=== PATIENT | male | born 1975 | race Hispanic/Latino ===

== ENCOUNTER 2021-09-23 14:01 | Emergency (ER) | payer BC, OTHER ==
[2021-09-23] MEDS ORDERED: ONDANSETRON 4 MG/2 ML VIAL ONE (14:45)
[2021-09-23] MEDS ORDERED: MORPHINE 4 MG/ML SYR ONE (14:45)
[2021-09-23 14:52] LABS: Absolute Lymphocytes (CBC) 2.5 K/uL (0.7-4.9); Hematocrit 41.4 % (39.6-49.0); Lymphocytes % 28.2 % (15.3-44.8); MPV 8.1 fL (7.6-11.3); RBC Red Blood Cell Count 4.51 M/uL (4.33-5.43)
[2021-09-23 15:12] LABS: Albumin 3.8 g/dL (3.4-5.0); Bilirubin Total 0.2 mg/dL (0.2-1.0); Potassium 3.8 mmol/L (3.5-5.1)
--- NOTE | 2021-09-23 15:54 | RAD REPORT ---
EXAM DESCRIPTION: CTAbdomen Pelvis W Contrast - 09/23/2021 3:46 pm CLINICAL HISTORY: Abdominal pain. umbilical abdominal pain COMPARISON: CT ABD PELVIS W CONTRAST dated 05/11/2009 TECHNIQUE: Biphasic CT imaging of the abdomen and pelvis was performed with 100 ml non-ionic IV cont rast. All CT scans are performed using dose optimization technique as appropriate and may include automated exposure control or mA/KV adjustment according to patient size. FINDINGS: The lung bases are clear.Small hiatal hernia. The liver is diffusely fatty. Cholecystectomy clips. Spleen, pancreas, adrenal glands and kidneys are within normal limits. No bowel obstruction, free air, free fluid or abscess. Small fat containing umbilical hernia with inf lamed fat. Appendectomy. No evidence of significant lymphadenopathy. No suspicious bony findings. IMPRESSION: Small fat containing umbilical hernia is present with inflamed fat, likely indicating in carceration.
--- NOTE | 2021-09-23 16:14 | ER ---
Nurse's Notes [facility] Name: Alon Velarde Age: 45 yrs Sex: Male : 1975 Arrival Date: 09/23/2021 Time: 14:03 Bed 14 Private MD: Diagnosis: Umbilical hernia without obstruction or gangrene Presentation: 09/23 14:04 Chief complaint: Patient states: Sudden onset of diffuse abd pain that began 15-20 aa5 minutes ago. Denies N/V/D. Pt noticed a lump above umbilicus 2-3 days ago. Tenderness is noted upon palpation to the area. Coronavirus screen: Client denies travel out of the [place] in the last 14 days. Ebola Screen: Patient denies exposure to infectious person. Patient denies travel to an Ebola-affected area in the 21 days before illness onset. Initial Sepsis Screen: Does the patient meet any 2 criteria? No. Patient's initial sepsis screen is negative. Does the patient have a suspected source of infection? No. Patient's initial sepsis screen is negative. Risk Assessment: Do you want to hurt yourself or someone else? Patient reports no desire to harm self or others. Onset of symptoms was September 23, 2021. 14:04 Method Of Arrival: Ambulatory aa5 14:04 Acuity: ILIR 2 aa5 Triage Assessment: 14:38 General: Appears uncomfortable, Behavior is calm, cooperative. Pain: Complains of pain jg9 in abdomen-umbilicus. GI: Abdomen is tender to palpation in mid quadrant around umbilicus. Historical: - Allergies: 14:05 No Known Allergies; aa5 - Home Meds: 14:05 None [Active]; aa5 - PMHx: 14:05 None; aa5 - PSHx: 14:05 Appendectomy; Cholecystectomy; aa5 - Immunization history:: Client reports receiving the 2nd dose of the Covid vaccine. - Social history:: Smoking status: Patient denies any tobacco usage or history of. Screenin:38 Abuse screen: Denies threats or abuse. Denies injuries from another. Nutritional jg9 screening: No deficits noted. Tuberculosis screening: No symptoms or risk factors identified. Fall Risk None identified. Assessment: 15:36 GI: jg9 Vital Signs: 14:04 Resp 20; Weight 97.52 kg; Height 5 ft. 9 in. (175.26 cm); Pain 9/10; aa5 14:06 Temp 97.0(TE); aa5 15:00 BP 135 / 98; Pulse 77; Resp 16 S; Pulse Ox 100% on R/A; jg9 15:30 BP 119 / 84; Pulse 77; Resp 17 S; Pulse Ox 98% on R/A; jg9 16:30 BP 114 / 83; Pulse 94; Resp 14 S; Pulse Ox 99% on R/A; jg9 14:04 Body Mass Index 31.75 (97.52 kg, 175.26 cm) aa5 ED Course: 14:03 Patient arrived in ED. kz 14:05 Triage completed. aa5 14:05 Arm band placed on right wrist. [facility] 14:17 Pierce Robertson PA is PHCP. [facility] 14:17 Xavi Faria MD is Attending Physician. [facility] 14:30 Inserted saline lock: 20 gauge in right forearm, using aseptic technique. Blood jg9 collected. 14:37 Susie Molina, SUDHAKAR is Primary Nurse. jg9 14:39 Patient has correct armband on for positive identification. Bed in low position. Call jg9 light in reach. 14:40 CBC with Diff Sent. jg9 14:40 CMP Sent. jg9 14:40 Lipase Sent. jg9 15:46 CT Abd/Pelvis - IV Contrast Only In Process Unspecified. [facility] 16:13 Jame Ruffin MD is Referral Physician. [facility] 16:31 No provider procedures requiring assistance completed. jg9 16:31 IV discontinued. jg9 Administered Medications: 14:45 Drug: Zofran (Ondansetron) 4 mg Route: IVP; Site: right forearm; jg9 15:28 Follow up: Response: No adverse reaction jg9 14:48 Drug: morphine 4 mg {Note: RASS-0.} Route: IVP; Site: right forearm; jg9 15:15 Follow up: Response: No adverse reaction; Marked relief of symptoms; Pain is decreased; jg9 RASS: Alert and Calm (0) Outcome: 16:14 Discharge ordered by . [facility] 16:31 Discharged to home ambulatory. jg9 16:31 Condition: improved 16:31 Discharge instructions given to patient, Instructed on discharge instructions, follow up and referral plans. Demonstrated understanding of instructions, follow-up care. 16:41 Patient left the ED. jg9 Signatures: Dispatcher [employer] EDPierce Vega PA PA jmm Calderon, Audri, RN RN aa5 Susie Molina RN RN jg9 Josie Carranza
--- NOTE | 2021-09-23 16:14 | EDPHYS ---
Physician Documentation [facility] Name: Alon Velarde Age: 45 yrs Sex: Male : 1975 Arrival Date: 09/23/2021 Time: 14:03 Bed 14 Private MD: ED Physician Xavi Faria HPI: 09/23 14:26 This 45 yrs old Male presents to ER via Ambulatory with complaints of jmm Abdominal Pain. 14:26 The patient presents with abdominal pain in the periumbilical area. Onset: The jmm symptoms/episode began/occurred acutely, just prior to arrival. The symptoms do not radiate. Associated signs and symptoms: Pertinent negatives: diarrhea, vomiting. The symptoms are described as achy. Modifying factors: The symptoms are alleviated by nothing, the symptoms are aggravated by nothing. This is a 45-year-old male with no known chronic medical conditions presents emerged department with complaints of diffuse abdominal pain mainly around the periumbilical region. This is occurred while the patient was moving position on a couch. Denies vomiting or diarrhea. Patient states that he noticed some swelling around the area approximately a week ago. Patient states surgical history of appendectomy approximately a decade ago.. Historical: - Allergies: 14:05 No Known Allergies; aa5 - Home Meds: 14:05 None [Active]; aa5 - PMHx: 14:05 None; aa5 - PSHx: 14:05 Appendectomy; Cholecystectomy; aa5 - Immunization history:: Client reports receiving the 2nd dose of the Covid vaccine. - Social history:: Smoking status: Patient denies any tobacco usage or history of. ROS: 14:26 Constitutional: Negative for fever, chills, and weight loss, Cardiovascular: Negative jmm for chest pain, palpitations, and edema, Respiratory: Negative for shortness of breath, cough, wheezing, and pleuritic chest pain. 14:26 Abdomen/GI: Positive for abdominal pain. 14:26 All other systems are negative. Exam: 14:26 Constitutional: This is a well developed, well nourished patient who is awake, alert, jmm and in no acute distress. Head/Face: atraumatic. Eyes: EOMI, no conjunctival erythema appreciated ENT: Moist Mucus Membranes Neck: Trachea midline, Supple Chest/axilla: Normal chest wall appearance and motion. Cardiovascular: Regular rate and rhythm. No edema appreciated Respiratory: Normal respirations, no respiratory distress appreciated 14:26 Skin: General appearance color normal MS/ Extremity: Moves all extremities, no obvious deformities appreciated, no edema noted to the lower extremities Neuro: Awake and alert Psych: Behavior is normal, Mood is normal, Patient is cooperative and pleasant 14:26 Abdomen/GI: Inspection: abdomen appears normal, Bowel sounds: normal, Palpation: soft, in all quadrants, moderate abdominal tenderness, in the umbilical area. Vital Signs: 14:04 Resp 20; Weight 97.52 kg; Height 5 ft. 9 in. (175.26 cm); Pain 9/10; aa5 14:06 Temp 97.0(TE); aa5 15:00 BP 135 / 98; Pulse 77; Resp 16 S; Pulse Ox 100% on R/A; jg9 15:30 BP 119 / 84; Pulse 77; Resp 17 S; Pulse Ox 98% on R/A; jg9 16:30 BP 114 / 83; Pulse 94; Resp 14 S; Pulse Ox 99% on R/A; jg9 14:04 Body Mass Index 31.75 (97.52 kg, 175.26 cm) aa5 MDM: 14:26 Patient medically screened. [facility] 16:12 Data reviewed: vital signs, nurses notes. Counseling: I had a detailed discussion with pipe the patient and/or guardian regarding: the historical points, exam findings, and any diagnostic results supporting the discharge/admit diagnosis, lab results, radiology results, the need for outpatient follow up, to return to the emergency department if symptoms worsen or persist or if there are any questions or concerns that arise at home. ED course: CT reveals concerns for incarcerated hernia. I reevaluate the patient, patient has no abdominal pain on palpation. Patient states feeling much better after administered IV morphine. No active vomiting. Labs are unremarkable. I discussed the findings along with the patient's current presentation with general surgery, Dr. Ruffin. Recommended outpatient follow-up in his clinic on Thursday. Patient was given strict return precautions. Patient understood and agrees plan of care.. 09/23 14: Order name: CBC with Diff [facility] 09/23 14:27 Order name: CMP [facility] 09/23 14:27 Order name: Lipase [facility] 09/23 14:28 Order name: CBC with Automated Diff; Complete Time: 14:57 [facility] 09/23 14:28 Order name: Comprehensive Metabolic Panel; Complete Time: 15:44 [facility] 09/23 14:28 Order name: Lipase; Complete Time: 15:44 [facility] 09/23 14:27 Order name: CT Abd/Pelvis - IV Contrast Only; Complete Time: 15:56 [facility] 09/23 14:27 Order name: IV Saline Lock; Complete Time: 14:38 [facility] 09/23 14:27 Order name: Labs collected and sent; Complete Time: 14:38 [facility] Administered Medications: 14:45 Drug: Zofran (Ondansetron) 4 mg Route: IVP; Site: right forearm; jg9 15:28 Follow up: Response: No adverse reaction j9 14:48 Drug: morphine 4 mg {Note: RASS-0.} Route: IVP; Site: right forearm; jg9 15:15 Follow up: Response: No adverse reaction; Marked relief of symptoms; Pain is decreased; jg9 RASS: Alert and Calm (0) Disposition: 18:16 Co-signature as Attending Physician, Xavi Faria MD I agree with the assessment and kdr plan of care. Disposition Summary: 09/23/21 16:14 Discharge Ordered Location: Home [facility] Condition: Stable [facility] Diagnosis - Umbilical hernia without obstruction or gangrene [facility] Followup: [facility] - With: Jame Ruffin MD - When: 1 - 2 days - Reason: Recheck today's complaints, Continuance of care, Re-evaluation by your physician Discharge Instructions: - Discharge Summary Sheet [facility] - Hernia, Adult [facility] Forms: - Medication Reconciliation Form [facility] - Thank You Letter [facility] - Antibiotic Education [facility] - Prescription Opioid Use [facility] Signatures: Dispatcher [employer] Xavi Kennedy MD MD kdr Mickail, Joel, PA PA jm Acacia Lin, RN RN aa5 Susie Molina RN RN jg9
[2021-09-23 17:08] VITALS: TEMP 97
[2021-09-23 17:11] VITALS: BP 119/84; O2SAT 98
== END 2021-09-23 16:41 | disposition home or self-care (01) ==
LOC: ER 14:01
DX: K42.9 Umbilical hernia without obstruction or gangrene (principal)
CPT/HCPCS: 85025; 36415; 83690; 80053; 74177; 96375; 96374; 99284; Q9967; J2405

== ENCOUNTER 2021-10-02 06:12 | Day surgery (SDC) | payer BC ==
--- NOTE | 2021-10-01 12:03 | RAD REPORT ---
EXAM DESCRIPTION: RAD - Chest Pa And Lat (2 Views) - 10/01/2021 11:52 am CLINICAL HISTORY: Pre op pending hernia surgery COMPARISON: <Comparisons> FINDINGS: Lines: None. Lungs: No evidence of edema or pneumonia. Pleural: No significant pleural effusions or pneumothorax. Cardiac: The heart size is within normal limits. Bones: No acute fractures. Other: IMPRESSION: No acute cardiopulmonary disease.
--- NOTE | 2021-10-01 12:33 | EKG ---
Test Date: 2021-10-01 Test Time: 10:05:38 Estimator And Drafter Supervisor: DENA MEASUREMENT RESULTS: Intervals: Rate: 73 CT: 128 QRSD: 86 QT: 360 QTc: 396 [place]: P: 41 CT: 128 QRS: 20 T: 7 INTERPRETIVE STATEMENTS: Normal sinus rhythm Normal ECG No previous ECG available for comparison Electronically Signed On 10-01-21 12:33:02 CDT by Chase Leal
[2021-10-02] MEDS ORDERED: ROCURONIUM 50 MG/5 ML VIAL IV ONE (06:57)
[2021-10-02] MEDS ORDERED: LIDOCAINE 2% MPF 5 ML VIAL ONE (06:57)
[2021-10-02] MEDS ORDERED: propofoL 200 MG/20 ML VIAL IV ONE (06:57)
[2021-10-02] MEDS ORDERED: FENTANYL CITR 250 MCG/5 ML ONE (06:58)
[2021-10-02] MEDS ORDERED: MIDAZOLAM HCL 2 MG/2 ML INJ ONE (06:58)
[2021-10-02] MEDS ORDERED: SUCCINYLCHOLINE 20 MG/ML (10 ML) IV ONE (07:10)
[2021-10-02] MEDS ORDERED: ONDANSETRON 4 MG/2 ML VIAL ONE ×2 (07:12→09:11)
[2021-10-02] MEDS: Ringers Lactate 1,000 ML IV ONE ×2 (07:37→07:38)
[2021-10-02] MEDS: NA CHLORIDE 0.9% 50 ML ONE ×2 (07:37→07:44)
[2021-10-02] MEDS: CEFAZOLIN SODIUM 1 GM/VIAL ONE ×2 (07:38→07:44)
[2021-10-02] MEDS ORDERED: GLYCOPYRROLATE 0.2 MG/ML SYR ONE (08:19)
[2021-10-02] MEDS ORDERED: dexAMETHasone 10 MG/ML VIAL ONE (08:19)
[2021-10-02] MEDS ORDERED: NEOSTIGMINE 1 MG/ML -5 ML ONE (08:19)
--- NOTE | 2021-10-02 08:25 | P.BOP ---
Preoperative diagnosis: tender incarcerated umbilical hernia Postoperative diagnosis: same Primary procedure: Laparoscopic repair of tender incarcerated umbilical hernia with mesh Mailing Machine Assistant: LE CHOUDHURY (METAL HANGER) Estimated blood loss: <10cc Specimen: sac Findings: tender incarcerated umbilical hernia Anesthesia: General Complications: None Implants: medium ventralex Transferred to: Recovery Room Condition: Good
[2021-10-02] MEDS: HYDROMORPHONE HCL 1 MG/ML INJ ONE ×2 (09:03→09:11)
[2021-10-02] MEDS ORDERED: CODEINE 30MG/APAP 300MG TAB ONE (09:58)
[2021-10-02 10:01] VITALS: BP 127/74; TEMP 97; O2SAT 97
[2021-10-02] MEDS ORDERED: KETOROLAC 30 MG/ML INJ ONE (10:38)
--- NOTE | 2021-10-02 14:28 | DS ---
Date of Discharge: 10/02/2021 Diagnosis: Tender incarcerated umbilical hernia. Procedure: Laparoscopic repair of tender incarcerated umbilical hernia with mesh. Disposition: Home. Activity: As tolerated. No heavy lifting. Plan: Follow up in my office in 1 week. Call for appointment at [phone]. Keep area dry for 48 angela rs, then may shower. Keep Steri-Strip intact. Medications: Include Tylenol No.3 q.4 hours p.r.n. pain and Bactrim DS p.o. b.i.d. JAMES/LIBIA Voice ID: [id number] Report ID: [id number]
--- NOTE | 2021-10-02 14:28 | OP ---
Date of Procedure: 10/02/2021 Surgeon: Jame Ruffin MD Lead Performance Support Analyst: Milagros Vincent. Preoperative Diagnosis: Tender incarcerated umbilical hernia. Postoperative Diagnosis: Tender incarcerated umbilical hernia. Procedure: Laparoscopic repair of tender incarcerated umbilical hernia with mesh. Estimated Blood Loss: Less than 10 mL. Specimen: Hernia sac. Finding: Incarcerated umbilical hernia with incarcerated omentum. Anesthesia: General plus local. Implant: Medium Ventralex. Complications: None. Condition: Stable. Indication: This is the case of a 45-year-old patient, recently seen in the ER due to incarcerated u mbilical hernia. When he was over there, they were able to reduce the hernia at least that is what t hejolie thought and sent the patient home since the pain got better and sent to my office. The patient s hows incarcerated omentum with mild swelling of the fat on the umbilical region. So, we offered him laparoscopic possible open repair of incarcerated umbilical hernia with possible mesh with benefits, alternatives, and risks including, but not limited to infection, bleeding, damage to adjacent structu res, anesthesia complication, recurrence, [place], and even . He also understands this may not relie ve any symptoms. He might need more than one surgical intervention. He signed a consent. He also c onsented for use of mesh after allowed to ask questions about the mesh placement. All the questions were answered to his satisfaction. Procedure In Detail: The patient was brought to the operating room, placed in supine position. Anes thesia was done without complication. A time-out was called. Abdomen was prepped and draped in the usual sterile fashion. The initial incision was made in the periumbilical region just want to see th at incarcerated omentum is still viable, so we carefully opened the skin all the way down to fascia, identified the hernia sac, removed the incarcerated omentum. After removing some adhesions, we were able to partially reduce that. We have at least enough to put a Jose trocar through it. Pneumoper itoneum was obtained. After that, we placed 2 more trocars, 5 mm each in left and right side. After using the 5 mm trocars, we were able to visualize the area little more. Further work was done in th e omentum reducing the omentum from the area. We checked it, looks viable and no bleeding. The fasc ial edges were secured in place with #1 Vicryl. Before we do that, we dropped the Ventralex mesh int raperitoneally, pulled the straps, secured the mesh underneath with a CapSure fixation device. Remov ed the straps of the mesh, closed the fascia with #1 Vicryl multiple times. Then after that, continu ed laparoscopically to secure the mesh to make sure there was no bowel that can sneak in between. On ce we have that circumferentially, we noticed that we have not only waterproof defects. We checked t he area of the omentum and we did not see any bleeding. No enterotomies. Mesh looked nice and flat. At that moment, I proceeded to carefully deflate the pneumoperitoneum. Removed #5 trocars from the area. The umbilical area closed with 3-0 chromic and then the subcuticular 3-0 chromic, the same wi th the rest. The patient tolerated the procedure well. Local anesthetic was applied before closure. No bleeding. A Steri-Strip was placed in that area. The patient tolerated the procedure well. Th e patient was sent to recovery in stable condition. JAMES/LIBIA Voice ID: [id number] Report ID: [id number]
== END 2021-10-02 10:49 | disposition home or self-care (01) ==
LOC: OR 06:12
PROVIDERS: ATTEND Surgery
PROC: 0WUF0JZ Supplement Abdominal Wall with Synthetic Substitute, Open Approach (ICD-10-PCS; principal; 2021-10-02 07:30)
DX: K42.0 Umbilical hernia with obstruction, without gangrene (principal); Z20.822 Contact with and (suspected) exposure to COVID-19
CPT/HCPCS: 93005; 88302; 71046; 49587; U0003; J2704; J0330; J2250; J3010; J1100; J1170; J2710; J7120; J2405 ×2; J0690

== ENCOUNTER 2021-12-14 13:06 | Emergency (ER) | payer BC ==
--- NOTE | 2021-12-14 13:28 | ER ---
Nurse's Notes [facility] Name: Alon Velarde Age: 46 yrs Sex: Male : 1975 Arrival Date: 12/14/2021 Time: 13:07 Bed 23 Private MD: Diagnosis: Cutaneous abscess of right hand-paronychia, middle finger Presentation: 12/14 13:16 Chief complaint: Patient states: "smashed finger last week and now it is swollen and jd3 looks infected.". Coronavirus screen: At this time, the client does not indicate any symptoms associated with coronavirus-19. Ebola Screen: No symptoms or risks identified at this time. Initial Sepsis Screen: Does the patient meet any 2 criteria? No. Patient's initial sepsis screen is negative. Does the patient have a suspected source of infection? No. Patient's initial sepsis screen is negative. Risk Assessment: Do you want to hurt yourself or someone else? Patient reports no desire to harm self or others. Onset of symptoms was December 07, 2021. 13:16 Method Of Arrival: Ambulatory jd3 13:16 Acuity: ILIR 4 jd3 Triage Assessment: 13:40 General: Appears in no apparent distress. Behavior is calm, cooperative. iw 13:50 Injury Description: none. iw Historical: - Allergies: 13:17 No Known Allergies; jd3 - Home Meds: 13:17 None [Active]; jd3 - PMHx: 13:17 None; jd3 - PSHx: 13:17 Appendectomy; Cholecystectomy; hernia repair; jd3 - Immunization history:: Adult Immunizations up to date, Client reports receiving the 2nd dose of the Covid vaccine. - Social history:: Smoking status: Patient reports the use of cigarette tobacco products, denies chronic smoking, but will smoke occasionally, Patient reports use of chewing tobacco. Screenin:39 Abuse screen: Denies threats or abuse. Denies injuries from another. Nutritional iw screening: No deficits noted. Tuberculosis screening: No symptoms or risk factors identified. Fall Risk None identified. Assessment: 13:40 General: Appears in no apparent distress. Behavior is calm, cooperative. Pain: iw Complains of pain in dorsal aspect of distal phalanx of right middle finger. Neuro: Level of Consciousness is awake, alert, obeys commands, Oriented to person, place, time, situation. Cardiovascular: Patient's skin is warm and dry. Respiratory: Respiratory effort is even, unlabored. Derm: Abscess located on dorsal aspect of distal phalanx of right middle finger. Musculoskeletal: Range of motion: intact in all extremities. Vital Signs: 13:18 BP 145 / 98; Pulse 96; Resp 16 S; Temp 98.8(TE); Pulse Ox 99% on R/A; Weight 95.25 kg jd3 (R); Height 5 ft. 9 in. (175.26 cm) (R); Pain 3/10; 13:18 Body Mass Index 31.01 (95.25 kg, 175.26 cm) jd3 ED Course: 13:07 Patient arrived in ED. as 13:17 Triage completed. jd3 13:17 Makenzie Baker FNP-C is [facility]. kb 13:17 Xavi Faria MD is Attending Physician. kb 13:18 Arm band placed on. jd3 13:29 Mamta Kendrick RN is Primary Nurse. iw 13:39 No provider procedures requiring assistance completed. Patient did not have IV access iw during this emergency room visit. 13:40 Patient has correct armband on for positive identification. iw Administered Medications: 13:38 Drug: Bactrim (trimethoprim-sulfamethoxazole) (160 mg-800 mg (DS) 1 tablet Route: PO; iw 13:45 Follow up: Response: No adverse reaction iw 13:38 Drug: Ibuprofen 800 mg Route: PO; iw 13:45 Follow up: Response: No adverse reaction iw Medication: 13:40 VIS not applicable for this client. iw Outcome: 13:28 Discharge ordered by MD. kb 13:39 Discharged to home ambulatory. iw 13:39 Condition: good 13:39 Discharge instructions given to patient, Instructed on discharge instructions, follow up and referral plans. medication usage, Demonstrated understanding of instructions, follow-up care, medications, Prescriptions given X 1. 13:40 Patient left the ED. iw Signatures: Makenzie Baker FNP-C FNP-Cande Phelps as Mamta Kendrick, RN SUDHAKAR iw Pop Davis RN RN jd3
--- NOTE | 2021-12-14 13:29 | EDPHYS ---
Physician Documentation [facility] Name: Alon Velarde Age: 46 yrs Sex: Male : 1975 Arrival Date: 12/14/2021 Time: 13:07 Bed 23 Private MD: ED Physician Xavi Faria HPI: 12/14 17:29 This 46 yrs old Male presents to ER via Ambulatory with complaints of Finger kb Injury. 17:29 The patient presents with an abscess of the dorsal aspect of distal phalanx of right kb middle finger. Description: erythematous, swollen, warm. Onset: The symptoms/episode began/occurred this morning. Possible cause(s): unknown. Associated signs and symptoms: Pertinent positives: erythema, swelling. Modifying factors: the symptoms are alleviated by nothing, the symptoms are aggravated by pressure, squeezing the lesion and expressing the contents, touching. Severity of symptoms: At their worst the symptoms were moderate, in the emergency department the symptoms are unchanged. The patient has not experienced similar symptoms in the past. The patient has not recently seen a physician. Pt states he jammed his finger last weekend, has been wearing a finger splint on it. Noticed redness, swelling and warmth around nail this morning. . Historical: - Allergies: 13:17 No Known Allergies; jd3 - Home Meds: 13:17 None [Active]; jd3 - PMHx: 13:17 None; jd3 - PSHx: 13:17 Appendectomy; Cholecystectomy; hernia repair; jd3 - Immunization history:: Adult Immunizations up to date, Client reports receiving the 2nd dose of the Covid vaccine. - Social history:: Smoking status: Patient reports the use of cigarette tobacco products, denies chronic smoking, but will smoke occasionally, Patient reports use of chewing tobacco. ROS: 17:28 Constitutional: Negative for fever, chills, and weight loss. kb 17:28 Skin: Positive for abscess, of the dorsal aspect of distal phalanx of right middle finger. 17:28 All other systems are negative. Exam: 17:28 Constitutional: This is a well developed, well nourished patient who is awake, alert, kb and in no acute distress. Head/Face: Normocephalic, atraumatic. ENT: Moist Mucous membranes Cardiovascular: Regular rate and rhythm with a normal S1 and S2. No gallops, murmurs, or rubs. No pulse deficits. Respiratory: Respirations even and unlabored. No increased work of breathing. Talking in full sentences MS/ Extremity: Pulses equal, no cyanosis. Neurovascular intact. Full, normal range of motion. Neuro: Awake and alert, GCS 15, oriented to person, place, time, and situation. Moves all extremities. Normal gait. Psych: Awake, alert, with orientation to person, place and time. Behavior, mood, and affect are within normal limits. 17:28 Skin: abscess, that is moderate sized, of the dorsal aspect of distal phalanx of right middle finger, with fluctuance. Vital Signs: 13:18 BP 145 / 98; Pulse 96; Resp 16 S; Temp 98.8(TE); Pulse Ox 99% on R/A; Weight 95.25 kg jd3 (R); Height 5 ft. 9 in. (175.26 cm) (R); Pain 3/10; 13:18 Body Mass Index 31.01 (95.25 kg, 175.26 cm) jd3 MDM: 13:18 Patient medically screened. kb 17:27 Data reviewed: vital signs, nurses notes. Data interpreted: Pulse oximetry: on room air kb is 99 %. Interpretation: normal. Counseling: I had a detailed discussion with the patient and/or guardian regarding: the historical points, exam findings, and any diagnostic results supporting the discharge/admit diagnosis, the need for outpatient follow up, a family practitioner, to return to the emergency department if symptoms worsen or persist or if there are any questions or concerns that arise at home. 17:27 ED course: Cleaned nailbed with alcohol pad in preparation for I\T\D then area began kb draining. Was able to drain moderate amount of purulent discharge. Pt reports pain improved. Administered Medications: 13:38 Drug: Bactrim (trimethoprim-sulfamethoxazole) (160 mg-800 mg (DS) 1 tablet Route: PO; iw 13:45 Follow up: Response: No adverse reaction iw 13:38 Drug: Ibuprofen 800 mg Route: PO; iw 13:45 Follow up: Response: No adverse reaction iw Disposition: 17:47 Co-signature as Attending Physician, Xavi Faria MD I agree with the assessment and kdr plan of care. Disposition Summary: 06/11/22 13:28 Discharge Ordered Location: Home kb Condition: Stable kb Diagnosis - Cutaneous abscess of right hand - paronychia, middle finger kb Followup: kb - With: Emergency Department - When: As needed - Reason: Worsening of condition Followup: kb - With: Private Physician - When: 2 - 3 days - Reason: Recheck today's complaints, Continuance of care, Re-evaluation by your physician Discharge Instructions: - Discharge Summary Sheet kb - Paronychia, [id number] kb Forms: - Medication Reconciliation Form kb - Thank You Letter kb - Antibiotic Education kb - Prescription Opioid Use kb Prescriptions: - Bactrim DS 800-160 mg Oral Tablet - take 1 tablet by ORAL route every 12 hours for 7 days; 14 tablet; Refills: 0, kb Product Selection Permitted Signatures: Makenzie Baker FNP-C FNP-Xavi Barbosa MD MD kdr Williams, Irene, Pop Russo RN, RN RN jd3
[2021-12-14] MEDS ORDERED: SMZ./TMP. 800/160 MG TABLET ONE (13:36)
[2021-12-14] MEDS ORDERED: IBUPROFEN 400 MG TAB ONE (13:36)
[2021-12-14 13:45] VITALS: BP 145/98; TEMP 98.8; O2SAT 99
== END 2021-12-14 13:40 | disposition home or self-care (01) ==
LOC: ER 13:06
DX: L03.011 Cellulitis of right finger (principal); F17.220 Nicotine dependence, chewing tobacco, uncomplicated
CPT/HCPCS: 99283